=== PATIENT | male | born 1990 | race Two or more races ===

== ENCOUNTER 2017-11-02 04:04 | Emergency (ER) | payer SELFPAY ==
[~2017-11-02] VITALS: Ht 144.8 cm; Wt 68.0 kg
--- NOTE | 2017-11-02 04:18 | NUR ---
PT BIBSELF AMBULATORY TO ER BED 3. UNABLE TO ASSESS PT. TALKING TO SELF AND SELCTIVELTY INGNORING QUESTIONS. PT AO. RR EVEN AND UNLABORED. NO SOB NOTED. NAD NOTED. NO NVD AT THIS TIME. PT WAITING FOR MD ULLOA.
--- NOTE | 2017-11-02 04:31 | NUR ---
ART AT BEDSIDE FOR EVAL.
--- NOTE | 2017-11-02 04:43 | NUR ---
PER ART PT DENIES HI/ SI
--- NOTE | 2017-11-02 04:56 | NUR ---
Patient eloped from facility. ER MD notified.
[2017-11-02 04:57] VITALS: BP 136/78
== END 2017-11-02 04:57 | disposition left against medical advice (07) ==
LOC: ER 04:07
DX: F29 Unspecified psychosis not due to a substance or known physiological condition (principal)
CPT/HCPCS: 99284; A4606; Z7610

== ENCOUNTER 2018-10-30 18:31 | Emergency (ER) | payer MEDICAID, OTHER ==
[~2018-10-30] VITALS: Ht 165.1 cm; Wt 68.0 kg
[2018-10-30] MEDS ORDERED: LORAZEPAM 1 MG TABLET ONE (19:16)
[2018-10-30] MEDS ORDERED: IBUPROFEN 600 MG TABLET PO ONE ×2 (19:16→19:30)
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
[2018-10-30 19:26] LABS: APPEARANCE,URINE Clear (CLEAR); BILIRUBIN,URINE SMALL (NEGATIVE); BLOOD, URINE Trace-intact Ery/uL (NEGATIVE); COLOR,URINE Yellow (YELLOW); KETONES,URINE Trace (NEGATIVE); LEUKOCYTE ESTERASE ,URINE Negative (NEGATIVE); NITRITE, URINE Negative (NEGATIVE); PROTEIN,URINE Trace mg/dl (NEGATIVE); UGLUCOSE Negative (NEGATIVE)
[2018-10-30 19:29] LABS: BASOPHILS # (AUTO) 0.1 /CMM (0.0-0.2); BASOPHILS % (AUTO) 0.8 % (0.0-2.0); EOSINOPHILS % (AUTO) 1.1 % (0.0-6.0); HEMATOCRIT 44 % (39-51); HEMOGLOBIN 14.7 g/dL (13.5-17.5); LYMPHOCYTES # (AUTO) 2.8 /CMM (0.8-4.8); LYMPHOCYTES % (AUTO) 27.5 % (20.0-44.0); MEAN CORPUSCULAR HGB CONC 34 g/dl (31.0-36.0); MEAN CORPUSCULAR VOLUME 90 fL (80-96); MONOCYTES % (AUTO) 9.4 % (2.0-12.0); NEUTROPHILS # (AUTO) 6.3 /CMM (1.8-8.9); NEUTROPHILS % (AUTO) 61.2 % (43.0-81.0); PLATELET COUNT (AUTO) 256 /CMM (150-450); RED BLOOD CELL COUNT(AUTO) 4.84 MIL/uL (4.5-6.0); WHITE BLOOD COUNT (AUTO) 10.3 K/uL (4.3-11.0)
[2018-10-30] MEDS ORDERED: LORAZEPAM 1 MG TABLET PO ONE (19:30)
[2018-10-30 19:36] LABS: BACTERIA,URINE None seen /HPF (None Seen); SQUAMOUS EPITHELIAL CELL,UR Few /HPF (None Seen)
[2018-10-30 19:38] LABS: CALCIUM, SERUM 9.2 mg/dL (8.5-10.1); CARBON DIOXIDE 29 mmol/L (21-32); CHLORIDE 103 mmol/L (98-107); CREATININE 0.9 mg/dL (0.6-1.3); GLUCOSE 96 mg/dL (74-106); POTASSIUM 3.6 mmol/L (3.5-5.1); SODIUM SERUM 137 mmol/L (136-145); UREA NITROGEN, BLOOD 17 mg/dL (7-18)
[2018-10-30 19:43] LABS: ALANINE AMINOTRANSFERASE 175 U/L (12-78); ALBUMIN 3.9 g/dL (3.4-5.0); ALCOHOL, BLOOD < 3 mg/dL (0-0); ALKALINE PHOSPHATASE 82 U/L (46-116); ASPARTATE AMINOTRANSFERASE 70 U/L (15-37); BILIRUBIN,DIRECT 0.2 mg/dL (0.0-0.2); BILIRUBIN,TOTAL 0.7 mg/dL (0.2-1.0); TOTAL PROTEIN, SERUM 7.5 g/dL (6.4-8.2)
[2018-10-30 19:44] LABS: ACETAMINOPHEN < 2 ug/ml (10-30); SALICYLATE < 2.8 mg/dL (2.8-20.0)
[2018-10-30 21:35] VITALS: BP 135/62
--- NOTE | 2018-10-30 21:50 | NUR ---
REPORT GIVEN TO CAM. PT AWAITING TRANSFER TO [facility].
--- NOTE | 2018-10-30 22:03 | NUR ---
CALLED [facility] AND SPOKE WITH VELIA TRIP#[id number] [id number]
--- NOTE | 2018-10-30 22:12 | NUR ---
Note undone in EDM - 10/30/18 at 2215 by RASHMI PT DENIES BEING HOMELESS, BUT APPEARS TO BE. AFTER SPEAKING TO THE PT, PT ADMITTED THAT SHE WAS HOMELESS. PT REC'D A TAP CARD AND WILL F/U WITH THE LIST OF RESOURCES/SHELTERS GIVEN TO HER. 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 PT REC'D A SANDWICH AND JUICE. PT HAS CLOTHING WITH HER. PT REC'D A WARM BLANKET WHILE SHE WAITS IN THE LOBBY.
--- NOTE | 2018-10-30 22:54 | NUR ---
PT EN ROUTE TO [facility] VIA BLS FOR CONT OF CARE.
== END 2018-10-30 22:57 ==
LOC: ER 18:35
DX: S00.512A Abrasion of oral cavity, initial encounter (principal); R45.851 Suicidal ideations; F19.10 Other psychoactive substance abuse, uncomplicated; R51 Headache; F15.10 Other stimulant abuse, uncomplicated; F20.9 Schizophrenia, unspecified; F31.9 Bipolar disorder, unspecified; F12.10 Cannabis abuse, uncomplicated; Y04.8XXA Assault by other bodily force, initial encounter; Y93.89 Activity, other specified; Y92.89 Other specified places as the place of occurrence of the external cause; Y99.8 Other external cause status
CPT/HCPCS: 36415; 70450-TC; 70486-TC; 72125-TC; 80048-TC; 80076-TC; 80305; 81000-TC; 85025-TC; G0480; L0172